=== PATIENT | male | born 1990 | race Caucasian/White ===

== ENCOUNTER 2017-06-07 23:40 | Emergency (ER) | payer OTHER ==
[2017-06-08] MEDS ORDERED: IBUPROFEN 600 MG TABLET PO ONE (00:18)
[2017-06-08] MEDS ORDERED: ACETAMINOPHEN 325 MG TABLET PO ONE (00:18)
--- NOTE | 2017-06-08 01:24 | RADIOLOGY REPORT (SQ) ---
EXAM DESCRIPTION: ELBOW RIGHT OVER 2 VIEWS COMPLETED DATE/TIME: 06/08/2017 12:42 am REASON FOR STUDY: trauma , fall. Pain at the proximal ulna. COMPARISON: None. NUMBER OF VIEWS: Four views. TECHNIQUE: AP, lateral, and both oblique radiographic images acquired of the right elbow. LIMITATIONS: None. FINDINGS: MINERALIZATION: Normal. BONES: No acute fracture or dislocation. No worrisome bone lesions. JOINT: No effusion. SOFT TISSUES: No soft tissue swelling. No radiopaque foreign body. IMPRESSION: No radiographic evidence of acute injury. TECHNICAL DOCUMENTATION: JOB ID: [id number] 2010 [employer]- All Rights Reserved
--- NOTE | 2017-06-08 01:36 | RADIOLOGY REPORT (SQ) ---
EXAM DESCRIPTION: KNEE RIGHT 3 VIEWS COMPLETED DATE/TIME: 06/08/2017 12:42 am REASON FOR STUDY: trauma , fall, generalized knee pain. COMPARISON: None. NUMBER OF VIEWS: Three views. TECHNIQUE: AP, lateral, and sunrise patella radiographic images acquired of the right knee. LIMITATIONS: None. FINDINGS: MINERALIZATION: Normal. BONES: There is cortical irregularity at the medial epicondyle of the distal femur on the lateral vie w. No dislocation. JOINT: No effusion. SOFT TISSUES: No soft tissue swelling. No radio-opaque foreign body. IMPRESSION: Cortical irregularity at the distal femur, may represent a small subchondral fracture. Evaluation with MRI as clinically warranted. TECHNICAL DOCUMENTATION: JOB ID: [id number] 2010 [employer]- All Rights Reserved
--- NOTE | 2017-06-08 01:40 | ER Document Report ---
ED General - General Chief Complaint: Arm Pain Stated Complaint: RT ARM AND KNEE PAIN Time Seen by Provider: 06/08/17 00:14 Notes: Patient is a 26-year-old male who presents with 3 years of chronic right knee pain as well as several days of right elbow pain. States that he fell up several steps when trying to move furniture into his house. He notes that this has exacerbated his chronic right knee pain which he describes as dull, constant aching pain that is worsened by walking or driving a car. He also notes that since the fall he has had a burning, warm pain to the right medial elbow that radiates down the forearm into his fourth and fifth digits. He has not seen a primary care doctor regarding these concerns. He has tried ibuprofen with moderate improvement of his pain. He denies any areas of focal weakness. He did not hit his head or neck. TRAVEL OUTSIDE OF THE [place] IN LAST 30 DAYS: No - Related Data Allergies/Adverse Reactions: No Known Allergies Allergy (Unverified 06/07/17 23:49) Past Medical History - General Information source: Patient - Social History Smoking Status: Never Smoker Frequency of alcohol use: Occasional Drug Abuse: None Lives with: Spouse/Significant other Family History: Reviewed & Not Pertinent Patient has suicidal ideation: No Patient has homicidal ideation: No Renal/ Medical History: Denies: Hx Peritoneal Dialysis Review of Systems - Review of Systems Notes: Constitutional: Negative for fever. Eyes: Negative for visual changes. ENT: Negative for facial injury Cardiovascular: Negative for chest injury. Respiratory: Negative for shortness of breath. Gastrointestinal: Negative for abdominal injury. Genitourinary: Negative for genital injury Musculoskeletal: Positive for right knee and right elbow pain Skin: Negative for laceration/abrasions. Neurological: Negative for head injury. Physical Exam - Vital signs Vitals: Temp Pulse Resp BP Pulse Ox 97.7 F 62 16 141/85 H 98 06/07/17 23:46 06/07/17 23:46 06/07/17 23:46 06/07/17 23:46 06/07/17 23:46 Interpretation: Normal Notes: PHYSICAL EXAMINATION: GENERAL: Well-appearing, well-nourished and in no acute distress. HEAD: Atraumatic, normocephalic. EYES: sclera anicteric, conjunctiva are normal. ENT: Moist mucous membranes. NECK: Normal range of motion LUNGS: Normal work of breathing HEART: 2+ radial pulses bilaterally EXTREMITIES: Mild swelling to the medial epicondyle on the right elbow. Full range of motion at the right elbow and right knee. No deformity. NEUROLOGICAL: RMU motor and sensory distribution intact bilaterally. PSYCH: Normal mood, normal affect. SKIN: Warm, Dry, normal turgor, no rashes or lesions noted. Course - Re-evaluation Re-evalutation: 06/08/17 06:14 No evidence of a septic joint, gout flare, dislocation, or fracture on exam and imaging. History is most consistent with a chronic ligamentous injury in the right knee and likely an acute ligamentous strain of the right elbow. Suspect mild impingement of the ulnar nerve on the right elbow given his diminished sensation in the fourth and fifth digits in the ulnar distribution on the right. Vitals wnl. At this time, I do not see an indication for labs or further imaging. Will discharge with conservative measures, return precautions, and follow-up recommendations. - Vital Signs Vital signs: Temp Pulse Resp BP Pulse Ox 98.1 F 62 18 138/76 H 98 06/08/17 02:00 06/08/17 02:00 06/08/17 02:00 06/08/17 02:00 06/08/17 02:00 - Diagnostic Test Radiology reviewed: Image reviewed, Reports reviewed Radiology results interpreted by me: 06/08/17 06:13 Right elbow x-ray: No acute fracture dislocation Right knee x-ray: No acute fracture dislocation Discharge - Discharge Clinical Impression: Right elbow pain Right knee pain Qualifiers: Chronicity: chronic Qualified Code(s): M25.561 - Pain in right knee Condition: Good Disposition: HOME, SELF-CARE Additional Instructions: You need to follow-up with orthopedic surgery for further evaluation of your right elbow and right knee with MRIs for ligamentous injury is given your clinical history. Your x-rays here did not show any acute fractures. Take ibuprofen 600 mg every 6 hours as needed for pain. Try to avoid straining or excessively using the affected areas to prevent worsening of your injury. Return for any additional concerns you may have. Referrals: CIELO SALAS MD [ACTIVE STAFF] - Follow up as needed
[2017-06-08 05:30] VITALS: BP 138/76
== END 2017-06-08 02:00 | disposition home or self-care (01) ==
LOC: ER 23:40
DX: M25.521 Pain in right elbow (principal); M25.421 Effusion, right elbow; W10.9XXA Fall (on) (from) unspecified stairs and steps, initial encounter; Y93.89 Activity, other specified; Y92.009 Unspecified place in unspecified non-institutional (private) residence as the place of occurrence of the external cause; G89.29 Other chronic pain; M25.561 Pain in right knee; R20.8 Other disturbances of skin sensation
CPT/HCPCS: 99283